=== PATIENT | male | born 1980 | race Caucasian/White ===

== ENCOUNTER 2016-11-02 08:56 | Emergency (ER) | payer SELFPAY ==
[~2016-11-02 08:56] MED LIST: FIORIC PO; OXYC10TA8 PO
[2016-11-02] MEDS ORDERED: SODIUM CHLOR 0.9% 1000 ML INJ 1,000 ML IV SCH (08:59)
[2016-11-02] MEDS ORDERED: SODIUM CHLORIDE 0.9% FLUSH 10 ML FLUSH IV FLUSH PRN (09:00)
[2016-11-02] MEDS ORDERED: diphenhydrAMINE HCL 50 MG/ML VIAL IVP ONE (09:00)
[2016-11-02] MEDS ORDERED: methylPREDNISolone SOD SUCC 125 MG/2 ML VIAL IVP ONE (09:00)
[2016-11-02] MEDS ORDERED: EPINEPHrine HCL (1:1000) 1 MG/ML VIAL IM ONE (09:00)
[2016-11-02] MEDS ORDERED: FAMOTIDINE 20 MG/2 ML VIAL IV PUSH ONE (09:00)
[2016-11-02] MEDS: RESP: ALBUTEROL 2.5 MG/IPRATROPIUM 0.5 MG NEB (SCH) INH ×2 (09:02→09:03)
[2016-11-02 09:05] VITALS: BP 184/94; PULSE 107; RESP 28; O2SAT 98
[2016-11-02 09:11] VITALS: O2SAT 98
--- NOTE | 2016-11-02 09:13 | PD ---
HPI Chief Complaint: allergic reaction Time Seen by Provider: 08:59 Travel History International Travel<30 days: No Contact w/Intl Traveler<30days: No Traveled to known affect area: No History of Present Illness HPI The patient is a 36-year-old male who presents to the emergency department for possible allergic reaction. The patient arrived he was in distress and was a somewhat limited historian. The patient states he awakened this morning and then developed a diffuse pruritic rash which shortness of breath. The patient does have a history of asthma and is without his inhalers. The patient denies starting any recent new medications or ingesting any unusual foods. He denies any previous history of anaphylaxis or severe allergic reaction. He does complain of shortness of breath, rash, and itching. He also complains of moderate anxiety secondary to his symptoms. Symptoms are moderate, there are no known alleviating or exacerbating factors. PFSH Past Medical History Narrative Medical Asthma Diminished Hearing: No Fibromyalgia: Yes Headaches: Yes Musculoskeletal: Yes (SPINAL INJURY) Immunizations Current: Yes Past Surgical History Surgical History: No Previous Surgery Social History Alcohol Use: No Tobacco Use: No Substance Use: No Allergies-Medications (Allergen,Severity, Reaction): Coded Allergies: Toradol (Verified Adverse Reaction, Mild, 11/02/16) PER PT "MAKES MY BODY FREAK OUT" Reported Meds & Prescriptions Reported Meds & Active Scripts Active Ventolin Hfa 18 GM Inh (Albuterol Sulfate) 90 Mcg/Act Aer 2 Puff INH Q4H PRN Zantac 150 Maximum Strength (Ranitidine HCl) 150 Mg Tab 150 Mg PO BID 5 Days Diphenhydramine (Diphenhydramine HCl) 25 Mg Cap 25 Mg PO Q4H PRN Deltasone (Prednisone) 20 Mg Tab 40 Mg PO DAILY 4 Days Epipen 2-Erwin Inj (Epinephrine) 0.3 Mg/0.3 Ml Pfpen 0.3 Mg IM ONCE PRN Review of Systems Except as stated in HPI: all other systems reviewed are Neg General / Constitutional: No: Fever Cardiovascular: No: Chest Pain or Discomfort Respiratory: Positive: Shortness of Breath, Wheezing Gastrointestinal: No: Nausea, Vomiting, Abdominal Pain Skin: Positive Rash, Positive Itching Psychiatric: Positive: Anxiety Physical Exam Narrative GENERAL: Awake, alert, anxious appearing 36-year-old male who appears in moderate distress. SKIN: Focused skin assessment warm/dry. Diffuse urticaria which blanches covering the neck, chest, back, abdomen, arms, and lower extremities from the hip to the knee. HEAD: Atraumatic. Normocephalic. EYES: Pupils equal and round. No scleral icterus. No injection or drainage. ENT: No nasal bleeding or discharge. Mucous membranes pink and moist. No obvious angioedema of the lips, tongue, or uvula. NECK: Trachea midline. No JVD. Mild stridor noted. CARDIOVASCULAR: Regular, tachycardic with a heart rate of 1:30. RESPIRATORY: Tachypnea with type breath sounds and prolonged expiratory phase with wheezes. GASTROINTESTINAL: Abdomen soft, non-tender, nondistended. MUSCULOSKELETAL: No obvious deformities. No clubbing. No cyanosis. No edema. NEUROLOGICAL: Awake and alert. No obvious cranial nerve deficits. Motor grossly within normal limits. Normal speech. PSYCHIATRIC: Slightly anxious. Data Data Last Documented VS Vital Signs Date Time Temp Pulse Resp B/P Pulse Ox O2 Delivery O2 Flow Rate FiO2 11/02/16 10:05 78 18 122/64 97 Nasal Cannula 2 11/02/16 09:26 97.8 Orders Ecg Monitoring (11/02/16 08:59) Iv Access Insert/Monitor (11/02/16 08:59) Oximetry (11/02/16 08:59) Diphenhydramine Inj (Benadryl Inj) (11/02/16 09:00) Methylprednisolone So Succ Inj (Solumedr (11/02/16 09:00) Famotidine Inj (Pepcid Inj) (11/02/16 09:00) Albuterol-Ipratropium Neb (Duoneb Neb) (11/02/16 09:00) Sodium Chlor 0.9% 1000 Ml Inj (Ns 1000 M (11/02/16 08:59) Sodium Chloride 0.9% Flush (Ns Flush) (11/02/16 09:00) Epinephrine (1:1000) Inj (Adrenalin (1:1 (11/02/16 09:00) MDM Medical Decision Making Medical Screen Exam Complete: Yes Emergency Medical Condition: Yes Medical Record Reviewed: Yes Differential Diagnosis Differential diagnosis includes anaphylaxis, allergic reaction, medication side effect, insect bite, insect sting, asthma exacerbation, angioedema. Narrative Course IV was established, labs were drawn and sent, and the patient was placed on cardiac telemetry monitoring and continuous pulse oximetry monitoring. The patient was immediately administered epinephrine 0.3 mg IM. The patient was administered Solu-Medrol 125 mg intravenously, Benadryl 50 mg intravenously, Pepcid 20 mg intravenously and 1 L of normal saline. The patient's symptoms significantly improved within 5 minutes of administration of epinephrine 0.3 mg IM. The patient was then monitored in the emergency department. The patient is very observed at 9:45 AM, his heart rate came down 82, blood pressure improved to 135/82, and O2 sat was 97%. The patient's eyes had resolved, stridor completely resolve, and wheezes had significantly diminished. The patient was resting comfortably with his eyes closed and was in no acute distress. The patient continued to be monitored for possible rebound effects. The patient was monitored once again at 10:30 AM, vitals were stable with a heart rate in the 70s, blood pressure within normal limits, patient was resting comfortably. Hives had completely resolved. Patient had no symptoms. Critical Care Narrative Aggregate critical care time was 35 minutes. Time to perform other separately billable procedures was not included in the critical care time. My time did not include minutes spent treating any other patients simultaneously or on activities that did not directly contribute to the patient's treatment. The services I provided to this patient were to treat and/or prevent clinically significant deterioration that could result in: Anoxia, hypoxia, respiratory distress, respiratory failure, arrhythmia, . I provided critical care services requiring my management, as noted below: Chart data review, documentation time, medication orders and management, vital sign assessments/reviewing monitor data, ordering and reviewing lab tests, ordering and interpreting/reviewing x-rays and diagnostic studies, care of the patient and discussion of the patient with the admitting physicians. Diagnosis Primary Impression: Anaphylaxis Qualified Code: T78.2XXA - Anaphylaxis, initial encounter Patient Instructions: General Instructions Additional Instructions: Medications as directed. Return immediately if symptoms worsen or progress. Follow-up with your primary physician. Med/Other Pt SpecificInfo: Prescription(s) given Scripts Albuterol 18 GM Inh (Ventolin Hfa 18 GM Inh)90 Mcg/Act Aer2 Puff INH Q4H PRN ( SHORTNESS OF BREATH) #1 INHALER Ref 0 Prov:Don Campa MD 11/02/16 Ranitidine (Zantac 150 Maximum Strength)150 Mg [id number] Mg PO BID 5 Days Prov:Don Campa MD 11/02/16 Diphenhydramine 25 Mg Cap25 Mg PO Q4H PRN (ALLERGIES) #20 CAP Ref 0 Prov:Don Campa MD 11/02/16 Prednisone (Deltasone)20 Mg Tab40 Mg PO DAILY 4 Days Ref 0 Prov:Don Campa MD 11/02/16 Epinephrine Inj (Epipen 2-Erwin Inj)0.3 Mg/0.3 Ml Pfpen0.3 Mg IM ONCE PRN ( ALLERGIC REACTION) #1 PACK Ref 0 Prov:Don Campa MD 11/02/16 Disposition: 01 DISCHARGE HOME Condition: Stable Don Campa MD Nov 02, 2016 09:13
[2016-11-02 09:26] VITALS: BP 136/71; PULSE 93; RESP 20; TEMP 97.8; O2SAT 98
[2016-11-02] MEDS ORDERED: EPIP0.3I IM (09:56)
[2016-11-02] MEDS ORDERED: ZANTTAB PO (09:56)
[2016-11-02] MEDS ORDERED: PRED-503 PO (09:56)
[2016-11-02] MEDS ORDERED: VENTAER INH (09:56)
[2016-11-02] MEDS ORDERED: DIPH25CA PO (09:56)
[2016-11-02 10:05] VITALS: BP 122/64; PULSE 78; RESP 18; O2SAT 97
[2016-11-02 11:22] VITALS: BP 104/69; PULSE 76; RESP 16; O2SAT 97
[2016-11-02 11:53] VITALS: BP 110/85; PULSE 96; RESP 16; O2SAT 97
== END 2016-11-02 11:56 | disposition home or self-care (01) ==
LOC: PHED 08:56
DX: T78.2XXA Anaphylactic shock, unspecified, initial encounter (principal)
CPT/HCPCS: 94640; 94664; 96361; 96372; 96374; 96375; 99291; J0171; J1200; J2930; J7030

== ENCOUNTER 2017-02-14 05:04 | Emergency (ER) | payer SELFPAY ==
[~2017-02-14] VITALS: Ht 185.4 cm; Wt 98.9 kg
[~2017-02-14 05:04] MED LIST changes: +DIPH25CA PO; +EPIP0.3I IM; -FIORIC PO; -OXYC10TA8 PO; +PRED-503 PO; +VENTAER INH; +ZANTTAB PO
[2017-02-14 05:19] VITALS: BP 141/81; PULSE 96; RESP 20; TEMP 98.3; O2SAT 96
[2017-02-14 05:40] VITALS: BP 138/98; PULSE 87; RESP 18; O2SAT 97
[2017-02-14] MEDS ORDERED: ONDANSETRON HCL 4 MG/2 ML VIAL IV PUSH ONE (05:45)
[2017-02-14] MEDS ORDERED: SODIUM CHLOR 0.9% 1000 ML INJ 1,000 ML IV ONE (05:45)
[2017-02-14] MEDS ORDERED: diphenhydrAMINE HCL 50 MG/ML VIAL IV PUSH ONE ×2 (05:45→06:00)
--- NOTE | 2017-02-14 05:46 | PD ---
HPI Chief Complaint: Headache Time Seen by Provider: 05:39 Travel History International Travel<30 days: No Contact w/Intl Traveler<30days: No Traveled to known affect area: No History of Present Illness HPI 36-year-old male presents to the emergency department for complaint of recurrent migraine. Patient reports that approximately once a year he has a migraine. Patient's had associated nausea with dry heaving. Symptoms began slowly as a mild headache grossly worsened over the day beginning around 11 AM on Thursday. Patient's had no recent fever or neck stiffness or pain no chest pain palpitations no upper extremity or lower extremity numbness or weakness or ataxia gait. Patient states migraine is typical of his symptoms with photophobia and phonophobia. Patient has family history of migraines and sister. Patient is not aware of any triggers and no preceding aura. She denies other concerns or complaints. Patient reports just prior to arrival to the emergency department around 3 AM he took 800 mg of ibuprofen without symptom relief. PFSH Past Medical History Narrative Medical Asthma, migraines, spine injury; no tobacco use; nursing notes reviewed Asthma: Yes Diminished Hearing: No Fibromyalgia: Yes Headaches: Yes Musculoskeletal: Yes (SPINAL INJURY) Immunizations Current: Yes Migraines: Yes Influenza Vaccination: No Past Surgical History Surgical History: No Previous Surgery Social History Alcohol Use: No Tobacco Use: No Substance Use: No Allergies-Medications (Allergen,Severity, Reaction): Coded Allergies: ketorolac (Unverified Adverse Reaction, Mild, 02/14/17) PER PT "MAKES MY BODY FREAK OUT" Reported Meds & Prescriptions Reported Meds & Active Scripts Active Ventolin Hfa 18 GM Inh (Albuterol Sulfate) 90 Mcg/Act Aer 2 Puff INH Q4H PRN Reported Ibuprofen 200 Mg Cap 800 Mg PO ONCE Diphenhydramine Liq (Diphenhydramine HCl) 12.5 Mg/5 Ml Elix 50 Mg PO ONCE Review of Systems Except as stated in HPI: all other systems reviewed are Neg General / Constitutional: No: Fever, Chills Eyes: No: Diploplia, Blurred Vision HENT: Positive: Headaches, No: Neck Stiffness, Neck Pain Cardiovascular: No: Chest Pain or Discomfort Respiratory: No: Shortness of Breath Gastrointestinal: Positive: Nausea, Vomiting (x1), No: Hematemesis, Hematochezia Genitourinary: No: Dysuria, Flank Pain Musculoskeletal: No: Pain Skin: No Rash Neurologic: Positive: Headache, No: Weakness, Dizziness, Syncope Psychiatric: No: Anxiety Hematologic/Lymphatic: No: Lymph Node Enlargement Physical Exam Narrative GENERAL: Well-developed well-nourished male in no acute distress no respiratory distress; GCS 15 SKIN: Warm and dry. HEAD: Atraumatic. Normocephalic. EYES: Pupils equal and round. Extraocular muscles intact No scleral icterus. No injection or drainage. ENT: No nasal bleeding or discharge. Mucous membranes pink and moist. NECK: Trachea midline. No JVD. No meningismus no nuchal rigidity neck is supple CARDIOVASCULAR: Regular rate and rhythm. RESPIRATORY: No accessory muscle use. Clear to auscultation. Breath sounds equal bilaterally. GASTROINTESTINAL: Abdomen soft, non-tender, nondistended. Hepatic and splenic margins not palpable. MUSCULOSKELETAL: Extremities without clubbing, cyanosis, or edema. No obvious deformities. NEUROLOGICAL: Awake and alert. No obvious cranial nerve deficits. Motor grossly within normal limits. Five out of 5 muscle strength in the arms and legs. Normal speech. PSYCHIATRIC: Appropriate mood and affect; insight and judgment normal. Data Data Last Documented VS Vital Signs Date Time Temp Pulse Resp B/P (MAP) Pulse Ox O2 Delivery O2 Flow Rate FiO2 02/14/17 05:40 87 18 138/98 (111) 97 Room Air 02/14/17 05:19 98.3 Orders Orders ^ Saline Lock (02/14/17 05:40) Sodium Chlor 0.9% 1000 Ml Inj (Ns 1000 M (02/14/17 05:45) Ondansetron Inj (Zofran Inj) (02/14/17 05:45) Diphenhydramine Inj (Benadryl Inj) (02/14/17 06:00) Dexamethasone Inj (Decadron Inj) (02/14/17 07:00) Hydromorphone Pf Inj (Dilaudid Pf Inj) (02/14/17 07:00) MDM Medical Decision Making Medical Screen Exam Complete: Yes Emergency Medical Condition: Yes Medical Record Reviewed: Yes Differential Diagnosis Tension headache, migraine headache, cluster headache, musculoskeletal pain, dehydration; unlikely ICH, unlikely meningitis Narrative Course IV access obtained; Patient administered 1 L normal saline Benadryl 25 mg IV ( reportedly had just taken Benadryl prior to arrival to the emergency department along with prior dose of ibuprofen) and Zofran 4 mg IV At 6:50AM minimal response to IV fluids Benadryl and Zofran; patient will be given additional medication Decadron 6 mg IV along with Dilaudid 0.5 mg IV. Vital signs have markedly improved after fluid hydration and internal and Zofran Patient is stable for outpatient management and follow-up with primary care provider is return to the emergency department as needed Diagnosis Primary Impression: Migraine Referrals: Primary Care Physician call for appointment Patient Instructions: General Instructions, Narcotic given in the ED Additional Instructions: Increase fluid hydration Follow-up with primary care provider Return to the emergency department for any concerns or change in condition May take ibuprofen/Advil/Motrin 800 mg as often as every 8 hours as needed for pain associated with inflammation May take acetaminophen/Tylenol every 4-6 hours as needed for minor pain or for fever 100.4F or greater May use Zofran as prescribed as needed for nausea and/or vomiting Med/Other Pt SpecificInfo: Prescription(s) given Disposition: 01 DISCHARGE HOME Condition: Stable Edita Mitchell MD Feb 14, 2017 05:46
[2017-02-14] MEDS ORDERED: DIPH12.5S PO (06:13)
[2017-02-14] MEDS ORDERED: IBUP200C PO (06:13)
[2017-02-14 06:59] VITALS: BP 125/84; PULSE 83; RESP 18; O2SAT 98
[2017-02-14] MEDS ORDERED: HYDROmorphone HCL PF 0.5 MG/0.5 ML SYRINGE IV PUSH ONE (07:00)
[2017-02-14] MEDS ORDERED: DEXAMETHASONE SOD PHOS 4 MG/ML VIAL IV PUSH ONE (07:00)
[2017-02-14 08:14] VITALS: BP 128/79
== END 2017-02-14 08:15 | disposition home or self-care (01) ==
LOC: PHED 05:04
DX: G43.909 Migraine, unspecified, not intractable, without status migrainosus (principal); J45.909 Unspecified asthma, uncomplicated; M79.7 Fibromyalgia; Z79.899 Other long term (current) drug therapy
CPT/HCPCS: 96361; 96374; 96375; 99284; J1100; J1170; J2405; J7030; J1200

== ENCOUNTER 2017-04-04 09:25 | Inpatient (IN) | payer SELFPAY ==
[2017-04-04] VITALS (11 sets, daily range): BP systolic 136–158; BP diastolic 86–97; PULSE 78–101; RESP 17–20; TEMP 95.8–98.7; O2SAT 96–100
[~2017-04-04] VITALS: Ht 185.4 cm; Wt 100.0 kg
[~2017-04-04 09:25] MED LIST changes: +DIPH12.5S PO; -DIPH25CA PO; -EPIP0.3I IM; +IBUP200C PO; -PRED-503 PO; -ZANTTAB PO
[2017-04-04] MEDS ORDERED: SODIUM CHLOR 0.9% 1000 ML INJ 1,000 ML IV ONE (09:40)
[2017-04-04] MEDS ORDERED: SODIUM CHLORIDE 0.9% FLUSH 10 ML FLUSH IVF PRN (09:45)
--- NOTE | 2017-04-04 09:51 | PD ---
HPI Chief Complaint: OD/ Ingestion Time Seen by Provider: 09:35 Travel History International Travel<30 days: No Contact w/Intl Traveler<30days: No Traveled to known affect area: No History of Present Illness HPI 36 y/o male presents under [place] act for suicide attempt with Tylenol ingestion. There is varying reports on how much he took. He will not tell me how much he took and only told me that he has vomiting and upper abdominal pain. History is significantly limited. He told nursing staff he took a handful. The ambulance team states 500 mg tablets and a bottle of 200 with about two thirds of it missing the patient was saying that it was not new. Report was he took the medications somewhere around 4 AM range as this was when he was texting people [facility] Past Medical History Asthma: Yes Diminished Hearing: No Fibromyalgia: Yes Headaches: Yes Musculoskeletal: Yes (SPINAL INJURY) Immunizations Current: Yes Migraines: Yes Tetanus Vaccination: < 5 Years Influenza Vaccination: No ?: Not Social History Alcohol Use: Yes (RARELY) Tobacco Use: No Substance Use: No Allergies-Medications (Allergen,Severity, Reaction): Coded Allergies: ketorolac (Unverified Adverse Reaction, Mild, 02/14/17) PER PT "MAKES MY BODY FREAK OUT" Reported Meds & Prescriptions Reported Meds & Active Scripts Active Ventolin Hfa 18 GM Inh (Albuterol Sulfate) 90 Mcg/Act Aer 2 Puff INH Q4H PRN Review of Systems ROS Limitations: Poor Historian Physical Exam Exam Limitations: Poor Historian Narrative GENERAL: Well-nourished, well-developed patient. SKIN: Warm and dry. HEAD: Normocephalic and atraumatic. EYES: No injection or drainage. ENT: No nasal drainage noted. NECK: Supple, trachea midline. CARDIOVASCULAR: Regular rate and rhythm RESPIRATORY: no increased effort. No accessory muscle use. GASTROINTESTINAL: Abdomen soft, mild ttp in epigastric area, nondistended. EXTREMITIES: No edema. NEUROLOGICAL: Awake and alert. Motor and sensory grossly within normal limits. Normal speech. Data Data Last Documented VS Vital Signs Date Time Temp Pulse Resp B/P (MAP) Pulse Ox O2 Delivery O2 Flow Rate FiO2 04/04/17 09:42 98 Room Air 04/04/17 09:38 98.7 97 18 Orders Orders Electrocardiogram (04/04/17 09:40) Complete Blood Count With Diff (04/04/17 09:40) Comprehensive Metabolic Panel (04/04/17 09:40) Prothrombin Time / Inr (Pt) (04/04/17 09:40) Act Partial Throm Time (Ptt) (04/04/17 09:40) Urinalysis - C+S If Indicated (04/04/17 09:40) Iv Access Insert/Monitor (04/04/17 09:40) Ecg Monitoring (04/04/17 09:40) Oximetry (04/04/17 09:40) Sodium Chloride 0.9% Flush (Ns Flush) (04/04/17 09:45) Sodium Chlor 0.9% 1000 Ml Inj (Ns 1000 M (04/04/17 09:40) Call Poison Control (04/04/17 09:40) Drug Screen, Random Urine (04/04/17 09:40) Alcohol (Ethanol) (04/04/17 09:40) Salicylates (Aspirin) (04/04/17 09:40) Tylenol (Acetaminophen) (04/04/17 09:40) Ondansetron Inj (Zofran Inj) (04/04/17 10:00) Acetylcysteine Inj (Acetadote Inj) (04/04/17 11:00) Acetylcysteine Inj (Acetadote Inj) (04/04/17 12:30) Acetylcysteine Inj (Acetadote Inj) (04/04/17 16:30) Admit Order (Ed Use Only) (04/04/17 11:57) ^ Sitter (04/04/17 11:57) Labs Laboratory Tests Test 04/04/17 09:45 04/04/17 11:45 White Blood Count 13.1 TH/MM3 Red Blood Count 4.52 MIL/MM3 Hemoglobin 13.6 GM/DL Hematocrit 39.7 % Mean Corpuscular Volume 87.7 FL Mean Corpuscular Hemoglobin 30.0 PG Mean Corpuscular Hemoglobin Concent 34.2 % Red Cell Distribution Width 12.8 % Platelet Count 317 TH/MM3 Mean Platelet Volume 8.9 FL Neutrophils (%) (Auto) 78.4 % Lymphocytes (%) (Auto) 14.6 % Monocytes (%) (Auto) 4.5 % Eosinophils (%) (Auto) 1.7 % Basophils (%) (Auto) 0.8 % Neutrophils # (Auto) 10.3 TH/MM3 Lymphocytes # (Auto) 1.9 TH/MM3 Monocytes # (Auto) 0.6 TH/MM3 Eosinophils # (Auto) 0.2 TH/MM3 Basophils # (Auto) 0.1 TH/MM3 CBC Comment DIFF FINAL Differential Comment Prothrombin Time 11.5 SEC Prothromb Time International Ratio 1.1 RATIO Activated Partial Thromboplast Time 25.4 SEC Blood Urea Nitrogen 11 MG/DL Creatinine 1.20 MG/DL Random Glucose 139 MG/DL Total Protein 7.5 GM/DL Albumin 4.1 GM/DL Calcium Level 8.8 MG/DL Alkaline Phosphatase 70 U/L Aspartate Amino Transf (AST/SGOT) 25 U/L Alanine Aminotransferase (ALT/SGPT) 23 U/L Total Bilirubin 0.7 MG/DL Sodium Level 138 MEQ/L Potassium Level 3.5 MEQ/L Chloride Level 103 MEQ/L Carbon Dioxide Level 22.2 MEQ/L Anion Gap 13 MEQ/L Estimat Glomerular Filtration Rate 68 ML/MIN Salicylates Level LESS THAN 1.7 MG/DL Acetaminophen Level 347.8 MCG/ML Ethyl Alcohol Level LESS THAN 3 MG/DL Urine Color YELLOW Urine Turbidity CLEAR Urine pH 5.5 Urine Specific Belcher 1.032 Urine Protein TRACE mg/dL Urine Glucose (UA) TRACE mg/dL Urine Ketones 10 mg/dL Urine Occult Blood NEG Urine Nitrite NEG Urine Bilirubin NEG Urine Urobilinogen LESS THAN 2.0 MG/DL Urine Leukocyte Esterase NEG Urine RBC LESS THAN 1 /hpf Urine WBC 1 /hpf Urine Mucus FEW /lpf Microscopic Urinalysis Comment CULT NOT INDICATED Urine Opiates Screen POS Urine Barbiturates Screen NEG Urine Amphetamines Screen NEG Urine Benzodiazepines Screen NEG Urine Cocaine Screen NEG Urine Cannabinoids Screen NEG MDM Medical Decision Making Medical Screen Exam Complete: Yes Emergency Medical Condition: Yes Medical Record Reviewed: Yes ([facility] confirmed) Interpretation(s) CBC & BMP Diagram 04/04/17 09:45 Total Protein 7.5, Albumin 4.1, Calcium Level 8.8, Alkaline Phosphatase 70, Aspartate Amino Transf (AST/SGOT) 25, Alanine Aminotransferase (ALT/SGPT) 23, Total Bilirubin 0.7 Tylenol level is 378 Differential Diagnosis Overdose, congestion, depression Narrative Course Will check blood work and dose with Zofran and have staff call Poison Control Center Given Tylenol level will dose with IV Mucomyst which was discussed with pharmacy. He will be admitted to the hospital for further care. At this time his coags and LFTs are normal. Physician Communication Physician Communication dr walker agrees to admit Diagnosis Primary Impression: Tylenol overdose Qualified Codes: T39.1X2A - Poisoning by 4-aminophenol derivatives, intentional self-harm, initial encounter Admitting Information Admitting Physician Requests: Admit Arti Villa MD Apr 04, 2017 09:51
[2017-04-04 09:57] LABS: AUTOMATED NEUTROPHIL # 10.3 TH/MM3 (1.8-7.7); BASOPHIL # 0.1 TH/MM3 (0-0.2); BASOPHIL % 0.8 % (0.0-2.0); EOSINOPHIL # 0.2 TH/MM3 (0-0.4); EOSINOPHIL % 1.7 % (0.0-4.0); HEMATOCRIT 39.7 % (39.0-51.0); HEMOGLOBIN 13.6 GM/DL (13.0-17.0); LYMPH % 14.6 % (9.0-44.0); LYMPHOCYTE # 1.9 TH/MM3 (1.0-4.8); MEAN CELL VOLUME 87.7 FL (80.0-100.0); MEAN CORPUSCULAR HGB CONC 34.2 % (32.0-36.0); MEAN PLATELET VOLUME 8.9 FL (7.0-11.0); MONO % 4.5 % (0.0-8.0); MONOCYTE # 0.6 TH/MM3 (0-0.9); NEUT % 78.4 % (16.0-70.0); PLATELET COUNT 317 TH/MM3 (150-450); RED BLOOD COUNT 4.52 MIL/MM3 (4.50-5.90); RED CELL DISTRIBUTION WIDTH 12.8 % (11.6-17.2); WHITE BLOOD COUNT 13.1 TH/MM3 (4.0-11.0)
[2017-04-04] MEDS ORDERED: ONDANSETRON HCL 4 MG/2 ML VIAL IV PUSH ONE (10:00)
[2017-04-04 10:08] LABS: INTERNATIONAL NORMALIZED RATIO 1.1 RATIO; PROTHROMBIN TIME - PATIENT 11.5 SEC (9.8-11.6)
[2017-04-04 10:15] LABS: ALBUMIN 4.1 GM/DL (3.4-5.0); AST (GOT) 25 U/L (15-37); BICARBONATE 22.2 MEQ/L (21.0-32.0); BLOOD UREA NITROGEN 11 MG/DL (7-18); CALCIUM 8.8 MG/DL (8.5-10.1); CHLORIDE 103 MEQ/L (98-107); GLOMERULAR FILTRATION RATE 68 ML/MIN (>89); GLUCOSE,RANDOM 139 MG/DL (74-106); SODIUM (NA) 138 MEQ/L (136-145)
[2017-04-04 10:16] LABS: ALT (GPT) 23 U/L (12-78)
[2017-04-04 10:25] LABS: ALKALINE PHOSPHATASE 70 U/L (45-117); TOTAL BILIRUBIN ADULT 0.7 MG/DL (0.2-1.0); TOTAL PROTEIN 7.5 GM/DL (6.4-8.2)
[2017-04-04 10:29] LABS: ACETAMINOPHEN 347.8 MCG/ML (10.0-30.0)
[2017-04-04] MEDS ORDERED: ACETYLCYSTEINE INJ 15,000 MG in DEXTROSE 5% IN WATER INJ 200 ML IV SCH ×2 (11:00)
[2017-04-04 12:05] LABS: BILIRUBIN, URINE NEG (NEG); BLOOD, URINE NEG (NEG); GLUCOSE,URINE TRACE mg/dL (NEG); KETONE, URINE 10 mg/dL (NEG); MUCUS URINE FEW /lpf (OCC); NITRITE,URINE NEG (NEG); PH, URINE 5.5 (5.0-8.5); URINE COLOR YELLOW (YELLW/STRAW); URINE LEUKOCYTE ESTERASE NEG (NEG)
[2017-04-04] MEDS ORDERED: SENNOSIDES 8.6 MG TAB PO PRN (12:30)
[2017-04-04] MEDS ORDERED: LACTULOSE SYRUP 20 GM/30 ML CUP PO PRN (12:30)
[2017-04-04] MEDS ORDERED: SODIUM CHLORIDE 0.9% FLUSH 10 ML FLUSH IV FLUSH PRN (12:30)
[2017-04-04] MEDS ORDERED: MAGNESIUM HYDROXIDE SUSP 30 ML CUP PO PRN (12:30)
[2017-04-04] MEDS ORDERED: BISACODYL 10 MG SUPP RECTAL PRN (12:30)
[2017-04-04] MEDS ORDERED: ONDANSETRON HCL 4 MG/2 ML VIAL IVP PRN (12:30)
[2017-04-04] MEDS ORDERED: NALOXONE HCL 0.4 MG/ML AMP IV PUSH PRN (12:30)
[2017-04-04] MEDS ORDERED: ACETYLCYSTEINE INJ 5,000 MG in DEXTROSE 5% IN WATE 500 ML INJ 500 ML IV SCH ×2 (12:30)
--- NOTE | 2017-04-04 13:22 | HHI.HP ---
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 Patient doesn't have any psychiatric history no history of anxiety or depression. Says he lost his mother recently and is going through a divorce at this time and he cannot take it anymore. He says he vomited once but no pills seen in not have a bowel movement. No nausea or vomiting no diarrhea or constipation. Denies chest pain or shortness of breath no abdominal pain. Urinating without any problems. He is not taking any medications on a regular basis. He had 2 glasses of wine last night. No history of heavy drinking. No history or current illicit drug use. No smoking. Review of Systems Except as stated in HPI: all other systems reviewed are Neg Past Family Social History Past Medical History Health he doesn't have any medical problems Past Surgical History Doesn't have any surgical history Reported Medications Doesn't take any medications on regular basis. Allergies: Coded Allergies: ketorolac (Unverified Adverse Reaction, Mild, 02/14/17) PER PT "MAKES MY BODY FREAK OUT" Family History Family is healthy no medical problems reported some Social History Occasional drinking. He did drink 2 glasses of wine last night. Drug illicit drug use or tobacco use. Physical Exam Vital Signs Vital Signs Date Time Temp Pulse Resp B/P (MAP) Pulse Ox O2 Delivery O2 Flow Rate FiO2 04/04/17 12:30 78 18 144/86 (105) 98 Room Air 04/04/17 11:30 86 18 136/91 (106) 98 Room Air 04/04/17 10:30 93 18 143/89 (107) 97 Room Air 04/04/17 09:42 98 Room Air 04/04/17 09:38 98.7 97 18 148/94 (112) 97 Room Air 04/04/17 09:38 101 20 97 Room Air 04/04/17 09:31 101 20 148/94 (112 100 Physical Exam GENERAL: This is a well-nourished, well-developed patient, in no apparent distress. CARDIOVASCULAR: Regular rate and rhythm without murmurs, gallops, or rubs. RESPIRATORY: Clear to auscultation. Breath sounds equal bilaterally. No wheezes , rales, or rhonchi. GASTROINTESTINAL: Abdomen soft, non-tender, nondistended. No hepato-splenomegaly , or palpable masses. No guarding. MUSCULOSKELETAL: Extremities without clubbing, cyanosis, or edema. No joint tenderness, effusion, or edema noted. No calf tenderness. Negative Homans sign bilaterally. NEUROLOGICAL: Awake and alert. Cranial nerves II through XII intact. Motor and sensory grossly within normal limits. Five out of 5 muscle strength in all muscle groups. Normal speech. Laboratory Laboratory Tests Test 04/04/17 09:45 04/04/17 11:45 White Blood Count 13.1 Red Blood Count 4.52 Hemoglobin 13.6 Hematocrit 39.7 Mean Corpuscular Volume 87.7 Mean Corpuscular Hemoglobin 30.0 Mean Corpuscular Hemoglobin Concent 34.2 Red Cell Distribution Width 12.8 Platelet Count 317 Mean Platelet Volume 8.9 Neutrophils (%) (Auto) 78.4 Lymphocytes (%) (Auto) 14.6 Monocytes (%) (Auto) 4.5 Eosinophils (%) (Auto) 1.7 Basophils (%) (Auto) 0.8 Neutrophils # (Auto) 10.3 Lymphocytes # (Auto) 1.9 Monocytes # (Auto) 0.6 Eosinophils # (Auto) 0.2 Basophils # (Auto) 0.1 CBC Comment DIFF FINAL Differential Comment Prothrombin Time 11.5 Prothromb Time International Ratio 1.1 Activated Partial Thromboplast Time 25.4 Blood Urea Nitrogen 11 Creatinine 1.20 Random Glucose 139 Total Protein 7.5 Albumin 4.1 Calcium Level 8.8 Alkaline Phosphatase 70 Aspartate Amino Transf (AST/SGOT) 25 Alanine Aminotransferase (ALT/SGPT) 23 Total Bilirubin 0.7 Sodium Level 138 Potassium Level 3.5 Chloride Level 103 Carbon Dioxide Level 22.2 Anion Gap 13 Estimat Glomerular Filtration Rate 68 Salicylates Level LESS THAN 1.7 Acetaminophen Level 347.8 Ethyl Alcohol Level LESS THAN 3 Urine Color YELLOW Urine Turbidity CLEAR Urine pH 5.5 Urine Specific Chaplin 1.032 Urine Protein TRACE Urine Glucose (UA) TRACE Urine Ketones 10 Urine Occult Blood NEG Urine Nitrite NEG Urine Bilirubin NEG Urine Urobilinogen LESS THAN 2.0 Urine Leukocyte Esterase NEG Urine RBC LESS THAN 1 Urine WBC 1 Urine Mucus FEW Microscopic Urinalysis Comment CULT NOT INDICATED Urine Opiates Screen POS Urine Barbiturates Screen NEG Urine Amphetamines Screen NEG Urine Benzodiazepines Screen NEG Urine Cocaine Screen NEG Urine Cannabinoids Screen NEG Result Diagram: 04/04/1794404/04/17944 Caprini VTE Risk Assessment Caprini VTE Risk Assessment: Mod/High Risk (score >= 2) Caprini Risk Assessment Model Point Value = 1 Point Value = 2 Point Value = 3 Point Value = 5 Age 41-60 Minor surgery BMI > 25 kg/m2 Swollen legs Varicose veins or History of unexplained or recurrent spontaneous Oral contraceptives or hormone replacement Sepsis (< 1 month) Serious lung disease, including pneumonia (< 1 month) Abnormal pulmonary function Acute myocardial infarction Congestive heart failure (< 1 month) History of inflammatory bowel disease Medical patient at bed rest Age 61-74 Arthroscopic surgery Major open surgery (> 45 min) Laparoscopic surgery (> 45 min) Malignancy Confined to bed (> 72 hours) Immobilizing plaster cast Central venous access Age >= 75 History of VTE Family history of VTE Factor V Leiden Prothrombin [id number] Lupus anticoagulant Anticardiolipin antibodies Elevated serum homocysteine Heparin-induced thrombocytopenia Other congenital or acquired thrombophilia Stroke (< 1 month) Elective arthroplasty Hip, pelvis, or leg fracture Acute spinal cord injury (< 1 month) Prophylaxis Regimen Total Risk Factor Score Risk Level Prophylaxis Regimen 0-1 Low Early ambulation 2 Moderate Order ONE of the following: *Sequential Compression Device (SCD) *Heparin 5000 units SQ BID 3-4 Higher Order ONE of the following medications: *Heparin 5000 units SQ TID *Enoxaparin/Lovenox 40 mg SQ daily (WT < 150 kg, CrCl > 30 mL/min) *Enoxaparin/Lovenox 30 mg SQ daily (WT < 150 kg, CrCl > 10-29 mL/min) *Enoxaparin/Lovenox 30 mg SQ BID (WT < 150 kg, CrCl > 30 mL/min) AND/OR *Sequential Compression Device (SCD) 5 or more Highest Order ONE of the following medications: *Heparin 5000 units SQ TID (Preferred with Epidurals) *Enoxaparin/Lovenox 40 mg SQ daily (WT < 150 kg, CrCl > 30 mL/min) *Enoxaparin/Lovenox 30 mg SQ daily (WT < 150 kg, CrCl > 10-29 mL/min) *Enoxaparin/Lovenox 30 mg SQ BID (WT < 150 kg, CrCl > 30 mL/min) AND *Sequential Compression Device (SCD) Assessment and Plan Assessment and Plan Ibarra acted. Suicidal attempt with Tylenol overdose. Patient took 60 pills of Tylenol in the morning 04/04/17 Tylenol level on admission of 347.8 Poison control contacted by emergency room Start on Mucomyst IV. 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 In the case of services not specified as inpatient-only, they are appropriately provided as inpatient services in accordance with the 2-midnight benchmark. Estimated LOS (days): 3 days is the estimated time the patient will need to remain in the hospital, assuming treatment plan goals are met and no additional complications. Post-Hospital Plan: Other (specify) (psych unit ) Pamela Bhardwaj MD Apr 04, 2017 13:22
[2017-04-04] MEDS: SODIUM CHLOR 0.9% 1000 ML INJ 1,000 ML IV SCH ×2 (13:55→22:30)
[2017-04-04] MEDS ORDERED: ACETYLCYSTEINE INJ 10,000 MG in DEXTROSE 5% IN WATE 1000ML INJ 1,000 ML IV SCH ×2 (16:30)
[2017-04-04] MEDS: SODIUM CHLORIDE 0.9% FLUSH 10 ML FLUSH IV FLUSH SCH (20:08)
[2017-04-04] MEDS: DOCUSATE SODIUM 50 MG/SENNA 8.6 MG TAB PO SCH (20:08)
[2017-04-04] MEDS ORDERED: diphenhydrAMINE HCL 25 MG CAP PO PRN (22:30)
[2017-04-05] VITALS (9 sets, daily range): BP systolic 131–151; BP diastolic 79–99; PULSE 73–103; RESP 17–20; TEMP 97.3–99.2; O2SAT 96–98
[2017-04-05 07:49] LABS: AUTOMATED NEUTROPHIL # 9.3 TH/MM3 (1.8-7.7); BASOPHIL # 0.1 TH/MM3 (0-0.2); BASOPHIL % 0.5 % (0.0-2.0); EOSINOPHIL # 0.4 TH/MM3 (0-0.4); EOSINOPHIL % 3.1 % (0.0-4.0); HEMATOCRIT 39.5 % (39.0-51.0); HEMOGLOBIN 13.6 GM/DL (13.0-17.0); LYMPH % 12.6 % (9.0-44.0); LYMPHOCYTE # 1.5 TH/MM3 (1.0-4.8); MEAN CORPUSCULAR HEMOGLOBIN 30.2 PG (27.0-34.0); MEAN CORPUSCULAR HGB CONC 34.3 % (32.0-36.0); MONOCYTE # 0.7 TH/MM3 (0-0.9); NEUT % 77.8 % (16.0-70.0); PLATELET COUNT 309 TH/MM3 (150-450); RED BLOOD COUNT 4.49 MIL/MM3 (4.50-5.90); RED CELL DISTRIBUTION WIDTH 12.4 % (11.6-17.2); WHITE BLOOD COUNT 11.9 TH/MM3 (4.0-11.0)
[2017-04-05 08:08] LABS: ALBUMIN 3.3 GM/DL (3.4-5.0); ALT (GPT) 63 U/L (12-78); AST (GOT) 33 U/L (15-37); BICARBONATE 24.6 MEQ/L (21.0-32.0); BLOOD UREA NITROGEN 10 MG/DL (7-18); CALCIUM 8.2 MG/DL (8.5-10.1); CHLORIDE 104 MEQ/L (98-107); CREATININE 1.02 MG/DL (0.60-1.30); GLOMERULAR FILTRATION RATE 82 ML/MIN (>89); GLUCOSE,RANDOM 129 MG/DL (74-106); SODIUM (NA) 139 MEQ/L (136-145)
[2017-04-05 08:15] LABS: ACETAMINOPHEN 10.4 MCG/ML (10.0-30.0); ALKALINE PHOSPHATASE 62 U/L (45-117); TOTAL BILIRUBIN ADULT 0.8 MG/DL (0.2-1.0); TOTAL PROTEIN 6.8 GM/DL (6.4-8.2)
[2017-04-05] MEDS: DOCUSATE SODIUM 50 MG/SENNA 8.6 MG TAB PO SCH ×2 (08:29→19:22)
[2017-04-05] MEDS: SODIUM CHLORIDE 0.9% FLUSH 10 ML FLUSH IV FLUSH SCH ×2 (08:29→19:22)
[2017-04-05] MEDS: SODIUM CHLOR 0.9% 1000 ML INJ 1,000 ML IV SCH ×2 (08:37→18:30)
[2017-04-05] MEDS ORDERED: POTASSIUM CHLORIDE 25 MEQ EFFERVESCENT TAB PO ONE (09:15)
[2017-04-05] MEDS ORDERED: ACETYLCYSTEINE INJ 10,000 MG in DEXTROSE 5% IN WATE 1000ML INJ 1,000 ML IV ONE ×2 (10:00)
--- NOTE | 2017-04-05 10:25 | HHI.PR ---
Subjective Remarks f/u for overdose and Suicide attempt. patient denied any N/V or abdominal pain. he stated he is doing well and very anxious to go home. Patient denied any suicidal ideations. he stated it was stupid of him for doing that and he will not do that again. Patient stated lost job recently and caught cheating on him with his own eyes. Objective Vitals Vital Signs Date Time Temp Pulse Resp B/P (MAP) Pulse Ox O2 Delivery O2 Flow Rate FiO2 04/05/17 08:00 97.7 92 17 136/99 (111) 96 04/05/17 04:00 79 04/05/17 04:00 98.7 86 20 143/90 (107) 98 04/05/17 00:25 97.3 80 20 131/79 (96) 98 04/05/17 00:00 73 04/04/17 20:32 98.0 80 20 158/97 (117) 96 04/04/17 20:00 87 04/04/17 17:31 98 21 04/04/17 16:00 97.4 81 17 154/89 (110) 98 04/04/17 14:22 95.8 82 17 151/97 (115) 97 04/04/17 13:22 04/04/17 12:30 78 18 144/86 (105) 98 Room Air 04/04/17 11:30 86 18 136/91 (106) 98 Room Air 04/04/17 10:30 93 18 143/89 (107) 97 Room Air I/O 04/04/17 04/04/17 04/04/17 04/05/17 04/05/17 04/05/17 07:00 15:00 23:00 07:00 15:00 23:00 Intake Total 1275 ml 1962 ml 780 ml 1050 ml Balance 1275 ml 1962 ml 780 ml 1050 ml Intake Oral 462 ml 780 ml IV Total 1275 ml 1500 ml 1050 ml # Voids 2 3 # Bowel Movements 1 Result Diagram: 04/05/17 0725 04/05/17 0725 Objective Remarks GENERAL: in NAD SKIN: Warm and dry. HEAD: Normocephalic. EYES: No scleral icterus. No injection or drainage. NECK: Supple, trachea midline. No JVD or lymphadenopathy. CARDIOVASCULAR: Regular rate and rhythm without murmurs, gallops, or rubs. RESPIRATORY: Breath sounds equal bilaterally. No accessory muscle use. GASTROINTESTINAL: Abdomen soft, non-tender, nondistended. MUSCULOSKELETAL: No cyanosis, or edema. BACK: Nontender without obvious deformity. No CVA tenderness. Medications and IVs Current Medications Sodium Chloride (NS Flush) 2 ml UNSCH PRN IVF FLUSH AFTER USING IV ACCESS; Start 04/04/17 at 09:45 Sodium Chloride 1,000 ml @ 1,000 mls/hr Q1H ONCE IV Last administered on at 09:52; Start 04/04/17 at 09:40; Stop 04/04/17 at 10:39; Status DC Ondansetron HCl (Zofran Inj) 4 mg ONCE ONCE IV PUSH Last administered on at 09:52; Start 04/04/17 at 10:00; Stop 04/04/17 at 10:01; Status DC Acetylcysteine 15550 mg/Dextrose 275 ml @ 200 mls/hr ONCE IV Last administered on 04/04/17at 11:46; Start 04/04/17 at 11:00; Stop 04/04/17 at 11:59; Status DC Acetylcysteine 5000 mg/Dextrose 525 ml @ 125 mls/hr ONCE IV Last administered on 04/04/17at 13:31; Start 04/04/17 at 12:30; Stop 04/04/17 at 16:29; Status DC Acetylcysteine 68209 mg/Dextrose 1,050 ml @ 62.5 mls/hr ONCE IV Last administered on 04/04/17at 18:11; Start 04/04/17 at 16:30; Stop 04/05/17 at 08:29; Status DC Sodium Chloride 1,000 ml @ 100 mls/hr Q10H IV Last administered on 04/04/17at 13 :55; Start 04/04/17 at 12:30 Sodium Chloride (NS Flush) 2 ml UNSCH PRN IV FLUSH FLUSH AFTER USING IV ACCESS ; Start 04/04/17 at 12:30 Sodium Chloride (NS Flush) 2 ml BID IV FLUSH Last administered on 04/04/17at 20: 08; Start 04/04/17 at 21:00 Ondansetron HCl (Zofran Inj) 4 mg Q6H PRN IVP NAUSEA OR VOMITING Last administered on 04/04/17at 13:31; Start 04/04/17 at 12:30 Naloxone HCl (Narcan Inj) 0.4 mg UNSCH PRN IV PUSH SEE LABEL COMMENTS; Start at 12:30 Senna/Docusate Sodium (Sherita-Colace) 1 tab BID PO ; Start 04/04/17 at 21:00 Magnesium Hydroxide (Milk Of Magnesia Liq) 30 ml Q12H PRN PO Mild constipation ; Start 04/04/17 at 12:30 Sennosides (Senokot) 17.2 mg Q12H PRN PO Moderate constipation; Start 04/04/17 at 12:30 Bisacodyl (Dulcolax Supp) 10 mg DAILY PRN RECTAL SEVERE CONSITIPATION; Start at 12:30 Lactulose (Lactulose Liq) 30 ml DAILY PRN PO SEVERE CONSITIPATION; Start at 12:30 Diphenhydramine HCl (Benadryl) 25 mg HS PRN PO insomnia; Start 04/04/17 at 22:30 Acetylcysteine 98367 mg/Dextrose 1,050 ml @ 62.5 mls/hr ONCE ONCE IV ; Start 04/05/17 at 10:00; Stop 04/06/17 at 02:47 Potassium Bicarb/ Potassium Chloride (K-Lyte Cl Eff) 50 meq ONCE ONCE PO ; Start 04/05/17 at 09:15; Stop 04/05/17 at 09:16; Status DC A/P Assessment and Plan 36 y/o M with Tylenol overdose due to suicide attempt Acetaminophen overdose -s/p Mucomyst -poison control called nurse today and nurse stated since LFTs increase they wants to repeat 16 hours of Mucomyst. aceto level 10.[address] and will repeat LFT tomorrow. Suicide attempt -[facility]. -consult place for psychiatrist. -sister. suicide protocol in place. Prophylaxis SCDs/Jeffry's Mila Kerr MD Apr 05, 2017 10:25
--- NOTE | 2017-04-05 12:41 | EKG ---
Date Performed: 04/04/2017 Time Performed: 09:37:28 PTAGE: 36 years EKG: Sinus rhythm MODERATE INTRAVENTRICULAR CONDUCTION DELAY NONSPECIFIC T-WAVE ABNORMALITY BORDERLINE ECG NO PREVIOUS TRACING DOCTOR: Elvis Florian Interpretating Date/Time 04/05/2017 12:41:12
--- NOTE | 2017-04-05 13:45 | PD.PSY.CON ---
Provisional Diagnosis Admission Date Apr 04, 2017 at 11:59 [place]. Adjustment disorder History of Present Illness Service Psychiatry Consult Requested By Attending physician Reason for Consult Tylenol overdose Primary Care Physician Misbah Nolasco, DO HPI 36-year-old male who claims he inadvertently overdosed on Tylenol. He claims they Tylenol bottle was not full and that he did not take the third of the bottles contents, as claimed by one report. He does admit to multiple stressors in the last year, including an unfaithful who has left him. He also has children. He is living with his father. He lost his job. However, he denies any suicidal or homicidal ideation, plan or intent. His cognition is intact and he has no psychotic symptoms. He is verbally michael for safety and he is competent to do so. He is cooperative with the staff and is willing to accept treatment. Review of Systems Psychiatric: COMPLAINS OF: Anxiety Except as stated in HPI: all other systems reviewed are Neg Past Family Social History Coded Allergies: ketorolac (Unverified Adverse Reaction, Mild, 02/14/17) PER PT "MAKES MY BODY FREAK OUT" Active Scripts Albuterol 18 GM Inh (Ventolin Hfa 18 GM Inh) 90 Mcg/Act Aer, 2 PUFF INH Q4H Y for SHORTNESS OF BREATH, #1 INHALER 0 Refills Prov:Don Campa MD 11/02/16 Discontinued Reported Medications Ibuprofen (Ibuprofen) 200 Mg Cap, 800 MG PO ONCE, CAP 0 Refills 02/14/17 Diphenhydramine Liq (Diphenhydramine Liq) 12.5 Mg/5 Ml Elix, 50 MG PO ONCE, #1 BOTTLE 0 Refills 02/14/17 Current Medications Medications (Trade) Dose Ordered Sig/Tigre Route Start Time Stop Time Status Last Admin (NS Flush) 2 ml UNSCH PRN IVF 04/04/17 09:45 Sodium Chloride 1,000 ml @ 100 mls/hr Q10H IV 04/04/17 12:30 04/04/17 13:55 (NS Flush) 2 ml UNSCH PRN IV FLUSH 04/04/17 12:30 (NS Flush) 2 ml BID IV FLUSH 04/04/17 21:00 04/04/17 20:08 (Zofran Inj) 4 mg Q6H PRN IVP 04/04/17 12:30 04/04/17 13:31 (Narcan Inj) 0.4 mg UNSCH PRN IV PUSH 04/04/17 12:30 (Sherita-Colace) 1 tab BID PO 04/04/17 21:00 (Milk Of Magnesia Liq) 30 ml Q12H PRN PO 04/04/17 12:30 (Senokot) 17.2 mg Q12H PRN PO 04/04/17 12:30 (Dulcolax Supp) 10 mg DAILY PRN RECTAL 04/04/17 12:30 (Lactulose Liq) 30 ml DAILY PRN PO 04/04/17 12:30 (Benadryl) 25 mg HS PRN PO 04/04/17 22:30 Acetylcysteine 25952 mg/Dextrose 1,050 ml @ 62.5 mls/hr ONCE ONCE IV 04/05/17 10:00 04/06/17 02:47 04/05/17 10:00 Family Psych History Denied for mental illness. Social History Mother . left. Children involved. Lost his job. Financially strapped. Lives with his father. Denies alcoholism and drug abuse. Patient's Strengths (min. 2) Verbal and has access to healthcare. Physical Exam Vital Signs Vital Signs Date Time Temp Pulse Resp B/P (MAP) Pulse Ox O2 Delivery O2 Flow Rate FiO2 04/05/17 12:00 97.6 90 17 135/90 (105) 98 04/05/17 09:14 21 04/04/17 12:30 Room Air I/O 04/05/17 04/05/17 04/06/17 08:00 16:00 00:00 Intake Total 780 ml 1050 ml Balance 780 ml 1050 ml Lab Results Test 04/04/17 17:49 04/05/17 07:25 Acetaminophen Level 123.6 MCG/ML 10.4 MCG/ML White Blood Count 11.9 TH/MM3 Red Blood Count 4.49 MIL/MM3 Hemoglobin 13.6 GM/DL Hematocrit 39.5 % Mean Corpuscular Volume 88.0 FL Mean Corpuscular Hemoglobin 30.2 PG Mean Corpuscular Hemoglobin Concent 34.3 % Red Cell Distribution Width 12.4 % Platelet Count 309 TH/MM3 Mean Platelet Volume 9.0 FL Neutrophils (%) (Auto) 77.8 % Lymphocytes (%) (Auto) 12.6 % Monocytes (%) (Auto) 6.0 % Eosinophils (%) (Auto) 3.1 % Basophils (%) (Auto) 0.5 % Neutrophils # (Auto) 9.3 TH/MM3 Lymphocytes # (Auto) 1.5 TH/MM3 Monocytes # (Auto) 0.7 TH/MM3 Eosinophils # (Auto) 0.4 TH/MM3 Basophils # (Auto) 0.1 TH/MM3 CBC Comment DIFF FINAL Differential Comment Blood Urea Nitrogen 10 MG/DL Creatinine 1.02 MG/DL Random Glucose 129 MG/DL Total Protein 6.8 GM/DL Albumin 3.3 GM/DL Calcium Level 8.2 MG/DL Alkaline Phosphatase 62 U/L Aspartate Amino Transf (AST/SGOT) 33 U/L Alanine Aminotransferase (ALT/SGPT) 63 U/L Total Bilirubin 0.8 MG/DL Sodium Level 139 MEQ/L Potassium Level 3.3 MEQ/L Chloride Level 104 MEQ/L Carbon Dioxide Level 24.6 MEQ/L Anion Gap 10 MEQ/L Estimat Glomerular Filtration Rate 82 ML/MIN Mental Status Examination Appearance: Appropriate Consciousness: Alert Orientation: x4 Motor Activity: Normal gait Speech: Unremarkable Language: Adequate Fund of Knowledge: Adequate Attention and Concentration: Adequate Memory: Unremarkable Mood: Appropriate Affect: Appropriate Thought Process & Associations: Intact Thought Content: Appropriate Hallucination Type: None Delusion Type: None Suicidal Ideation: No Suicidal Plan: No Suicidal Intention: No Homicidal Ideation: No Homicidal Plan: No Homicidal Intention: No Insight: Adequate Judgment: Adequate Assessment & Plan Problem List: (1) Adjustment disorder with mixed disturbance of emotions and conduct ICD Codes: F43.25 - Adjustment disorder with mixed disturbance of emotions and conduct Assessment & Plan Estimated LOS: days. Pleasant and cooperative. Denies suicidality and verbally contracts for safety. Willing to cooperate with staff. This physician wrote an order to discontinue the [employer] act. He does not need a sitter. This physician feels it is up to the patient to decide whether he wants further psychiatric treatment on an inpatient or outpatient basis. If he wants inpatient psychiatric treatment, and does not have the ability to afford it, he may be a candidate for treatment at [facility]. Right now he is stating he wants to go home and be treated on an outpatient basis. He has the ability to make decisions competently. Elvis Parsons MD Apr 05, 2017 13:45
[2017-04-05] MEDS ORDERED: IBUPROFEN 600 MG TAB PO ONE (23:30)
== END 2017-04-06 00:33 | disposition left against medical advice (07) | DRG 918 ==
LOC: NEPE 09:25 → NEDA 11:59 → N07A 13:52
PROVIDERS: ADMIT Family Medicine; ATTEND Family Medicine
DX: T39.1X2A Poisoning by 4-Aminophenol derivatives, intentional self-harm, initial encounter (principal); F43.25 Adjustment disorder with mixed disturbance of emotions and conduct; J45.909 Unspecified asthma, uncomplicated; R11.10 Vomiting, unspecified; M79.7 Fibromyalgia
CPT/HCPCS: 80053; 80307; 81001; 85025; 85610; 85730; 93005; 96361; 96374; 96375; J0132; J2405; J7030; J7060; J7070